=== PATIENT | female | born 1975 ===

== ENCOUNTER 2021-07-27 12:09 | Outpatient (REF) | payer MEDICARE, MEDICAID, SELFPAY ==
[2021-07-27 14:54] LABS: Influenza A PCR NEGATIVE (Negative); Influenza B PCR NEGATIVE (Negative); Resp Syncy Virus RNA Qual PCR NEGATIVE (Negative); SARS COV2 PCR INHOUSE NEGATIVE (Negative)
== END 2021-07-27 12:10 | disposition home or self-care (01) ==
LOC: HO.LAB 12:09
PROVIDERS: Visit Provider Family Medicine
DX: Z20.822 Contact with and (suspected) exposure to COVID-19 (principal); R05.9 Cough, unspecified
CPT/HCPCS: 0241U; 36415

== ENCOUNTER 2025-04-07 13:20 | Outpatient (AMB) | payer MEDICARE, SELFPAY ==
--- NOTE | 2025-04-07 13:30 | A.OFFPC_ITS ---
Vital Signs 3 04/07/25 13:35 Height 5 ft 5.5 in Weight 163 lb 6 oz BMI 26.8 BP 132/70 Blood Pressure Location Rt brachial Position Sitting Respiration 12 Pulse 62 Pulse Source Pulse Oximeter Temp 97.3 F Temp Source Oral Pulse Oximetry (%) 99 Oxygen Delivery Method Room Air Intake Visit Reasons: est care Intake Note: New patient to establish care. Autopsy Assistant Required: No Allergies No Known Allergies Allergy (Verified 04/07/25 13:56) Medication List - Last Reconciled 04/07/25 by Elba Gresham, PRESSURE DISPATCHER- metoprolol succinate ER 25 mg PO BID Tobacco use date assessed: 04/07/25 Fall risk assessment: No Falls in past year Last assessed Fall Risk: 04/07/25 Dental Screening Dental Screen Date: 04/07/25 Did you have a dental visit in the last 12 months?: No Did you have a dental problem in the last 6 months where you did not have access to dental care?: No Was dental information given to patient?: Patient has dentist HPI HPI Comments 2 History of Present Illness0 Details 76 y/o F with Mitral valve prolapse, PV C, HTN, Vertigo, hx of sulema vaginitis, pes planus bilat, onychomycosis, cervical spondylosis, sciatica, hiatal hernia, basal cell ca of the skin, hx of stillborn (1st child), hx of MDD SurgHx: FHx: Dtr with Kleefstra syndrome; has special needs Granddtr SocHx: has chickens Health Maintenance: See scanned preventative medicine assessment with personalized health plan and screening schedule. Colon: Mammo DEXA PAP Vaccines AAA screen EKG: [place] of Care: [facility] Visual Acuity: Hearing Screening: hearing test in the past; reports hearing worse. Wonders about update hearing exam. ACP: Dietary/Nutrition/Exercise Edu provided: Y Here today to est care, no records available Previous PCP: Treva Several concerns today: MVP & PVC - managed by Sarah, Dr Duenas; takes BB Takes care of special needs GrandDtr in preschool Exposed to sick contact URI x 2, cough continues but not as bad No abt or medical care Pain inside of L foot, bump there, sx present for about 1-2 months Wears bilat orthotics; admits the pain started after she switched Denies trauma to the foot. Urine stream has slowed down a few weeks ago. Denies fever, chills, abd pain, blood in urine, vaginal d/c. Chronic constipation: using OTC Magnesium Ridges on finger nails, wonders if normal Basal cell ca of R thigh did not get treated d/t life stressors; willing to f/u now insomnia wakes between 2-5 am and naps during the day, using otc supplements with effect Hiatal hernia w/ sx of choking at times. Does not want to try PPI or the like. Lower abd hernia - caused by pushing a car; hurts when she coughs. pulls knees to chest and this helps. Exam: Awake alert NAD Scleras nonicteric bilat Cerumen bilat, cleared w/ lavage, TM intact and clear RRR, 2/6 murmur LS CTAB, mild cough, no distress Abd soft nontender No CVAT No edema BLE L foot interior aspect is a visible and palpable firm bump, appears bruised. Not TTP. Pes planus. Neurovasc intact. R lateral thigh: see below. longitudnal ridges in fingernails, uniform Mood and affect appropriate Plan: Reassured about the cough. Exam is benign. This is likely postviral cough syndrome which can be treated supportively. She was reassured about the ridges in her nails on her fingers. She was referred to Dermatology for the area on her right thigh. She was referred for a hearing exam. Ears flushed today. An x-ray of the left foot we will be done. Today to include a urinalysis to evaluate her complaints. General wellness labs will be done at the same time. Continue metoprolol and care with titrator. Advised to return to the office in 4-6 weeks for a Medicare wellness visit and sooner as needed. Total time spent caring for the patient today was 90 minutes. This includes time spent before the visit reviewing the chart, time spent during the visit, and time spent after the visit on documentation, reviewing laboratory results, diagnostic imaging, medications, performing a medically necessary evaluation, counseling on diagnoses, care coordination, ordering appropriate tests, ordering appropriate medications, review of tests performed by other providers, reporting test results with the patient, communication with other healthcare providers. [facility] Medical History (Updated 04/07/25 @ 14:56 by Elba Gresham, [facility]) Cervical spondylosis HTN (hypertension) No pertinent family history Palpitations Shingles Skin cancer Stillborn, normal Surgical History (Updated 04/07/25 @ 13:41 by Piero Echols MA) History of appendectomy [place] teeth extracted Social History (Updated 04/07/25 @ 13:42 by Piero Echols MA) Household Members: Spouse and Children Housing: House Are you a primary career transition specialist to a significant other at home: Yes Do you presently have visiting nurse or other home services: No Alcohol intake: never Patient Tobacco Use Status: Never used Tobacco e-Cigarette/Vaping Use: Never Used Second Hand Smoke Exposure: No service: No Current occupational status: retired Cognitive needs: Yes Hearing needs: Yes Vision needs: Yes (wear glasses) Questionnaire PHQ-9 Over the last 2 weeks, how often have you been bothered by any of the following problems? 1. Little interest or pleasure in doing things: not at all 2. Feeling down, depressed, or hopeless: not at all 3. Trouble falling or staying asleep, or sleeping too much: several days 4. Feeling tired or having little energy: several days 5. Poor appetite or overeating: not at all 6. Feeling bad about yourself - or that you are a failure or have let yourself or your family down: not at all 7. Trouble concentrating on things, such as reading the newspaper or watching television: not at all 8. Moving or speaking so slowly that other people could have noticed. Or the opposite - being so fidgety or restless that you have been moving around a lot more than usual: not at all 9. Thoughts that you would be better off or of hurting yourself in some way: not at all Total score: 2 Depression Screening Interpretation: Negative Depression Screening Done: Yes 38278 - PHQ-9 Billing: Yes Source: Developed by Drs. Suman Guerrero, Catina Cisneros, Loki Mar and colleagues, with an educational lanre from [employer]. Thrive Questionnaire Date Thrive assessed: 04/07/25 I am a: Patient What is your living situation today?: I have a steady place to live Within the past 12 months, did the food you bought not last and you didn't have the money to get more?: Never true Within the past 12 months, did you worry whether your food would run out before you got money to buy more?: Never true Do you have trouble paying for medicines?: No Do you have trouble getting transportation to medical appointments?: No Do you have trouble paying your heating and electricity bill?: No Do you have trouble taking care of your child, family member or friend?: No Do you have trouble with day-to-day activities such as bathing, preparing meals, shopping, managing finances, etc.?: No Are you currently unemployed and looking for a job?: No Are you interested in more education?: No Please select the resources that you would like help with: Care for elder or disabled Currently or been in a relationship where the following occur: I choose not to answer THRIVE Score: 0 AUDIT C Alcohol Use Questionnaire (AUDIT-C) 1. How often do you have a drink containing alcohol?: Never 3. How often do you have six or more drinks on one occasion?: Never Total Score: 0 Score Reviewed/Action Taken: Yes CECIL-7 AMB Questionnaire CECIL-7 Date CECIL - 7 assessed: 04/07/25 Feeling nervous, anxious, or on edge: 0 = Not at all Not being able to stop or control worryin = Not at all Worrying too much about different things: 0 = Not at all Trouble relaxin = Not at all Being so restless that it is hard to sit still: 0 = Not at all Becoming easily annoyed or irritable: 0 = Not at all Feeling afraid as if something awful might happen: 0 = Not at all Total CECIL-7 score (0-4 normal; 5-9 mild; 10-14 moderate; 15-21 severe): 0 Source: Developed by Drs. Suman Guerrero, Catina Cisneros, Loki Mar and colleagues, with an educational lanre from [employer]. CECIL-7 Assessment Billing CECIL-7 Assessment Tool: CECIL-7 Assessment 36138 Physical exam (Primary Care) Vital Signs: Last Vital Signs Temp 97.3 F 04/07/25 13:35 Pulse 62 04/07/25 13:35 Resp 12 04/07/25 13:35 BP 132/70 04/07/25 13:35 Pulse Ox 99 04/07/25 13:35 Oxygen Delivery Method Room Air 07/31/25 13:35 BMI result Body Mass Index 26.8 Tobacco/Smoking Status: Tobacco use Status Tobacco use date assessed 04/07/25 04/07/25 13:33 Patient Tobacco Use Status Never used Tobacco 04/07/25 13:42 e-Cigarette/Vaping Use Never Used 04/07/25 13:42 PHQ-9: PHQ-9 Score PHQ-9: Total score 2 04/07/25 13:42 Depression Screening Interpretation: Negative Thrive Assessment: Date of Thrive Assessment Date Thrive assessed 04/07/25 04/07/25 13:42 Currently or been in a relationship where the following occur: I choose not to answer Office Procedures Cerumen Removal From which ear canal was the cerumen removed: bilateral Removal: irrigation, otoscope w/curette and cerumen loop/spoon Notes: patient tolerated procedure well, no complications and ear canal clear 00311-Jel Irrigation/Lavage Coding Level of Care Code New Pt Level 5 (89152) Complex EM visit Add On G2211 Diagnoses Encounter to establish care with new provider Z76.89 Sensorineural hearing loss (SNHL) of both ears H90.3 Hearing loss type: sensorineural Basal cell carcinoma (BCC) of skin of right lower extremity including hip C44.712 Basal cell carcinoma location: lower extremity including hip Laterality: right Mitral valve prolapse I34.1 Psychophysiological insomnia F51.04 Insomnia type: psychophysiologic Ridged nails L60.9 Slow transit constipation K59.01 Constipation type: slow transit constipation Hiatal hernia K44.9 Left foot pain M79.672 Impacted cerumen, bilateral H61.23 PVC (premature ventricular contraction) I49.3 Laboratory exam ordered as part of routine general medical examination Z00.00 History of changes of urine output Z87.448 History of depression Z86.59 Cervical spondylosis M47.812 Post-viral cough syndrome R05.8 CPT Codes Office Procedure - CPT: 03597-Zjn Irrigation/Lavage ([id number]) PROLONG OUTPT/OFFICE VIS - G2212 Additional Codes CECIL-7 Assessment Billing - CECIL-7 Assessment Tool: CECIL-7 Assessment 48116 ([id number]) PHQ-9 - 33343 - PHQ-9 Billing: Yes ([id number]) Assessment & Plan Assessment & Plan (1) Encounter to establish care with new provider: Code(s): Z76.89 - Persons encountering health services in other specified circumstances (2) Hearing loss, bilateral: Code(s): H91.93 - Unspecified hearing loss, bilateral Category: Medical Qualifiers: Hearing loss type: sensorineural Qualified Code(s): H90.3 - Sensorineural hearing loss, bilateral (3) Basal cell carcinoma of skin: Code(s): C44.91 - Basal cell carcinoma of skin, unspecified Category: Medical Qualifiers: Basal cell carcinoma location: lower extremity including hip L aterality: right Qualified Code(s): C44.712 - Basal cell carcinoma of skin of right lower limb, including hip (4) Mitral valve prolapse: Comment: echo 12/2023 AV VALVE MILDLY CALCIFIED, MV MOD THICKENING WITH MILD BILEAFLET PROLAPSE AND MILD TO MOD REGURG, GRADE 1 MILD DIASTOLIC DYSFUNCTION, EF 55-60% Code(s): I34.1 - Nonrheumatic mitral (valve) prolapse Category: Medical (5) Insomnia: Code(s): G47.00 - Insomnia, unspecified Category: Medical Qualifiers: Insomnia type: psychophysiologic Qualified Code(s): F51.04 - Psychophysiologic insomnia (6) Ridged nails: Code(s): L60.9 - Nail disorder, unspecified Category: Medical (7) Constipation: Code(s): K59.00 - Constipation, unspecified Category: Medical Qualifiers: Constipation type: slow transit constipation Qualified Code(s): K59.01 - Slow transit constipation (8) Hiatal hernia: Code(s): K44.9 - Diaphragmatic hernia without obstruction or gangrene Category: Medical (9) Left foot pain: Code(s): M79.672 - Pain in left foot Category: Medical (10) Impacted cerumen, bilateral: Code(s): H61.23 - Impacted cerumen, bilateral (11) PVC (premature ventricular contraction): Code(s): I49.3 - Ventricular premature depolarization Category: Medical (12) Laboratory exam ordered as part of routine general medical examination: Code(s): Z00.00 - Encounter for general adult medical examination without abnormal findings Category: Medical (13) History of changes of urine output: Code(s): Z87.448 - Personal history of other diseases of urinary system Category: Medical (14) History of depression: Code(s): Z86.59 - Personal history of other mental and behavioral disorders Category: Medical (15) Cervical spondylosis: Code(s): M47.812 - Spondylosis without myelopathy or radiculopathy, cervical region Category: Medical (16) Post-viral cough syndrome: Code(s): R05.8 - Other specified cough Category: Medical Plan . Orders: Orders 2 Lipid Panel Today Z00.00 - Encounter for general adult medical examination without abnormal findings Microalbumin, Random (w Creat) Today Z00.00 - Encounter for general adult medical examination without abnormal findings TSH reflex Free T4 Today Z00.00 - Encounter for general adult medical examination without abnormal findings Vitamin B12 and Folate Today Z00.00 - Encounter for general adult medical examination without abnormal findings XR foot LT min 3V Today M79.672 - Pain in left foot Complete Blood Count no Diff Today Z00.00 - Encounter for general adult medical examination without abnormal findings Comprehensive Met. Panel Today Z00.00 - Encounter for general adult medical examination without abnormal findings UA CC w/rflx Micro + Cult Today R30.0 - Dysuria, Z00.00 - Encounter for general adult medical examination without abnormal findings Vitamin D 25-OH Total Today Z00.00 - Encounter for general adult medical examination without abnormal findings Referrals 2 Audiology Referral H91.93 - Unspecified hearing loss, bilateral Dermatology Referral C44.91 - Basal cell carcinoma of skin, unspecified Patient Instructions: Walk-In Care (Urgent Care): We Make it Easy Walk-in for urgent medical issues such as: ? Seasonal Allergies ? Insect Bites ? Cough ? Diarrhea ? Acute Asthma Attacks ? Back, Knee or Joint Pain ? Ear Infection ? Fever without a Rash ? Headaches ? Nausea ? [place], Rash or Skin Irritation ? Sore Throat ? Sports Physicals ? Vomiting Most insurances are accepted. Patients do not need to be part of the [facility] to seek care at the walk-in clinic. Locations [facility] Tamara Romero, [place] [address] ? [phone] [facility] Walk-In Care in [place] provides services to ages 18 and over. Open Friday-Friday: 8 a.m. to 5 p.m. and Friday: 9 a.m. to 3 p.m.* *Hours may vary due to staffing availability. To confirm Walk-In Care hours in [place], please call [phone]. [address] [place] [address] ? [phone] [facility] Walk-In Care in [place] provides services to ages 12 and over. Open Friday-Friday: 8 a.m. to 5 p.m. Hours may vary due to staffing availability. To confirm Walk-In Care hours in [place], please call [phone]. LABORATORY SERVICES: [facility] Lab ? Primary Location [address] [place] [address] Friday through Friday 6:00 AM ? 5:00 PM Friday 7:00 AM ? 11:00 AM* [phone] The [facility] Lab is centrally located near the front entrance of the [facility] for easy outpatient access. Convenient parking is provided for outpatients. *Hours may vary due to staffing availability. To confirm Laboratory hours for any location, please call [phone]. Offsite Location For your convenience, we offer offsite laboratory draw stations at the following locations: [address] [place] [address] ? [address], [address] Friday through Friday 7:30 AM ? 1:00 PM* [phone] *Hours may vary due to staffing availability. To confirm Laboratory hours for any location, please call [phone]. [place] ? [address] Friday through Friday 6:00 AM ? 3:30 PM* Friday 6:30 AM ? 3 PM* [phone] *Hours may vary due to staffing availability. To confirm Laboratory hours for any location, please call [phone] [place] [address] Friday through Friday 7:30 AM ? 4:00 PM* [phone] *Hours may vary due to staffing availability. To confirm Laboratory hours for any location, please call [phone] [place] [address] Friday through 9:00 AM ? 4:00 PM* *Hours may vary due to staffing availability. To confirm Laboratory hours for any location, please call [phone]. Appointments are not necessary. Walk-ins are welcome. Like all the departments throughout the [facility], our Lab undergoes frequent reviews to ensure the quality and accuracy of test results, and our staff takes special pride in its status as a nationally accredited facility. Patient Portal: ONE PATIENT. ONE RECORD. BETTER CARE. [facility] has a fully integrated, cutting- edge mobile electronic health information system that has revolutionized the way we care for our patients and manage our organization. This system improves communication and coordination enabling us to provide safe, higher-quality care, and an overall positive experience for staff and patients. Our first priority, as always, is to deliver the highest quality care possible. The system is running in the background supporting that priority. This portal is for all [facility] services and practices. If you are experiencing any technical difficulties with enrolling or logging into the Patient Portal please complete the [facility] Patient Portal Technical Support Form. [facility] now offers a new secure on-line interactive tool for patients to review their health information ? ?Patient Portal. This interactive web portal will enable patients and their families to take an active role in their care by providing easy, secure access to their health information via the internet. The Patient Portal provides patients with instant access to their health information, including laboratory results, medications, allergies, demographic information, visit history, and more. In addition to managing their own care, parents and health care proxies with authorized consent will appreciate the ability to access the records of those individuals for whom they provide care. Please note: if you wish to gain access (Proxy) to another patient?s portal, you will be required to come to the Medical Records Department in person at [facility]. Both the patient giving proxy access and the proxy will need to provide photo identification and complete the appropriate authorization. The Patient Portal also allows track their appointments online. The [facility] Patient Portal also saves patients time by allowing them to submit updates to their demographic and contact information prior to their visits. Portal email notifications will also alert patients to any new activity on their portal, such as test results and new appointments. In order to initially enroll in the [facility] Patient Portal, you will need to enter some required information including the following: * your [facility] Medical Record number * your personal home email address * name * date of Please note: In order to enroll in the [facility] Patient Portal, we need to have your email address on file in your electronic medical record. ?The email address needs to be specific for one person (yourself) in order for your Portal enrollment to be successful. ?You can update your email address in person with our Registration staff when you are registering for a hospital visit. ?Otherwise, you will need to come to the Health Information Management (Medical Records) Department at [facility]. ?We are open from Friday ? Friday from 7:30 a.m. ? 4:30 p.m. ?You will be required to present a photo id. Once you have successfully enrolled in the Patient Portal, you will receive a one-time user id and password for the Portal, sent to your email address. ?This will allow you to log into the Patient Portal within 99 hrs and reset your own logon id and password, and define personal security questions. ?Once your permanent login and password have been set, you can log into the [facility] Patient Portal at any time via the blue button above or from the Portal Logon button on any page of the [facility] website. [facility] and [facility] encourage all of our patients to enroll in Patient Portal as it presents a valuable opportunity for patients and their families to actively participate in their care and stay healthy Welcome to [facility]. ?We look forward to working with you.
--- OUTSIDE RECORDS SUMMARY | 2025-04-07 13:34 | XMS_ITS ---
Author Name [facility] Organization Unknown Care Team Organization Name Specialty Phone Email Start Date End Da te [facility] Termed, PROVIDER Primary Care 07/16/202204/08
--- OUTSIDE RECORDS SUMMARY | 2025-04-07 13:34 | XMS_ITS | Clinical Summary ---
Author Organization [employer] [facility] ity Address [address] [place] [address] Care Team Providers Care Industrial Production Manager Name Role Phone Gabi Chen MD Primary Care Provider [phone] Surgical History Surgery Date Site/Laterality Comments APPENDECTOMY PROCEDURE: HISTORICAL APPENDECTOMY; COMMENT: at age 9 Medical History Medical History Date Comments Mitral valve prolapse DX:Mitral valve prolapse A-fib (CMS/HCC V24, CMS/HCC V28) DX:A-fib (HCC); COMMENT: hx of afib; resolved Hypothyroid DX:Hypothyroid Depression DX:Depression Constipation DX:Constipation Joint pain DX:Joint pain Mitral regurgitation DX:Mitral r egurgitation; COMMENT: mild; echo Family History Medical History Relation Name Comments Colon cancer Brother 1 Other: Elpidio Danlos Daughter 1 Eden Other: autism Daughter 1 Eden Seizures Daughter 1 Eden No Known Problems Daughter 2 Abby Breast cancer Neg Hx Colon cancer Neg Hx Ovarian cancer Neg Hx Uterine cancer Neg Hx Relation Name Status Comments Brother 1 Alive Brother 2 Alive age 61 heart is sues ? Daughter 1 Eden Alive Daughter 2 Abby Alive Father (Age 80) pacemaker, mitral valve prolaspe Mother (Age 89) mitral maxine ve prolaspe, pacemaker, htn, bladder chronic infections Sister 1 Alive age 63 fibromal igia, chronic fatigue Sister 2 Alive age 58 MS, (von quintero has MS as well) Social History Tobacco Use Types Packs/Day Years Used Date Smoking Tobacco: Never Smokeless Tobacco: Never Alcohol Use Standard Drinks/Week Comments No 0 (1 standard drink = 0.6 oz pur e alcohol) Comments Unknown Sex and Gender Information Value Date Recorded Sex Assigned at Not on file Legal Sex Female 10:10 AM EST Gender Identity Not on file Sexual Orientation Not on file Obstetrics History Last Filed Vital Signs Vital Sign Reading Time Taken Comments Blood Pressure 138/80 05/24/2024 4:46 PM EDT Pulse 76 05/24/2024 4:18 PM EDT Temperature - - Respiratory Rate - - Oxygen Saturation - - Inhaled Oxygen Concentration - - Weight 72.5 kg (159 lb 12.8 oz) 05/24/2024 4:18 PM EDT Height 167.6 cm (5' 6 ) 05/24/2024 4:18 PM EDT Body Mass Index 25.79 05/24/2024 4:18 PM EDT Plan of Treatment Health Maintenance Due Date Last Done Comments Pneumococcal Vaccine: 50+ Ye ars (1 of 1 - PCV) 03/06/1999 Zoster Vaccines (1 of 2) 03/06/1999 Colorectal Cancer Screening: Stool Based Tests (FOBT/FIT) 08/06/2022 Falls Risk Assessment 08/06/2022 Hepatitis C Screening 08/06/2022 Osteoporosis Screening (Bone Density Screening) 08/06/2022 Social Influencers of Health Screening 08/06/2022 DTaP,Tdap,and Td Vaccines (2 - Td or Tdap) 01/27/2024 01/26/2014 RSV Immunization Adult Patie nts (1 - 1-dose 75+ series) 03/06/2024 COVID-19 Vaccine ( - 2023-2 5 season) 2024 Depression Screening 09/08/2024 Influenza Vaccine (#1) 2025 Hypertension/CHF/CAD Annual BMP Blood Test 06/24/2025 06/24/2024 Cholesterol Screening (Lipid Panel) 06/24/2029 06/24/2024 HIB Vaccines Aged Out No longer eligi ble based on patient's age to complete this topic HPV Vaccines Aged Out No longer eligi ble based on patient's age to complete this topic Hepatitis A Vaccines Aged Out No long er eligible based on patient's age to complete this topic Hepatitis B Vaccines Aged Out No long er eligible based on patient's age to complete this topic IPV Vaccines Aged Out No longer eligi ble based on patient's age to complete this topic MMR Vaccines Aged Out No longer eligi ble based on patient's age to complete this topic Meningococcal ACWY Vaccine Aged Out N o longer eligible based on patient's age to complete this topic Meningococcal B Vaccine Aged Out No l onger eligible based on patient's age to complete this topic RSV Immunization Patients Un amairlys 20 months Aged Out No longer eligible b ased on patient's age to complete this topic Varicella Vaccines Aged Out No longer eligible based on patient's age to complete this topic Care Teams Industrial Production Manager Relationship Specialty Start Date End Date Gabi Chen MD PCP - General 10/28/23
[2025-04-07 13:35] VITALS: BP 132/70; PULSE 62; RESP 12; TEMP 36.3; O2SAT 99; BMI 26.8
== END 2025-04-07 15:16 | disposition home or self-care (01) ==
LOC: HO.HMCFM 13:21
PROVIDERS: PCP Nurse Practitioner Family; Visit Provider Nurse Practitioner Family
DX: I34.1 Nonrheumatic mitral (valve) prolapse (principal); Z76.89 Persons encountering health services in other specified circumstances; H90.3 Sensorineural hearing loss, bilateral; C44.712 Basal cell carcinoma of skin of right lower limb, including hip; F51.04 Psychophysiologic insomnia; L60.9 Nail disorder, unspecified; K59.01 Slow transit constipation; K44.9 Diaphragmatic hernia without obstruction or gangrene; M79.672 Pain in left foot; R05.8 Other specified cough; H61.23 Impacted cerumen, bilateral; I49.3 Ventricular premature depolarization

== ENCOUNTER 2025-04-07 14:54 | Outpatient (REF) | payer MEDICARE, SELFPAY ==
[2025-04-07 18:22] LABS: Alanine Aminotransferase 18 U/L (0-31); Albumin Level 4.4 g/dL (3.5-5.0); Alkaline Phosphatase 76 U/L (39-117); Anion Gap 13 (12-20); Aspartate Amino Transferase 32 U/L (5-31); Blood Urea Nitrogen 28 mg/dL (9-16); Calcium 9.3 mg/dL (8.4-10.2); Carbon Dioxide 23 mmol/L (22-29); Chloride 108 mmol/L (96-108); Cholesterol 239 mg/dL (<200); Estimated Glomerular Filt Rate 53; HDL Cholesterol 50 mg/dL (>40); Potassium 4.0 mmol/L (3.3-5.1); Sodium 140 mmol/L (135-145); Total Protein 7.0 g/dL (6.5-8.0); Triglycerides 222 mg/dL (<150)
[2025-04-07 18:26] LABS: Hematocrit 41.3 % (37.0-47.0); Hemoglobin 14.1 g/dl (12.0-16.0); Mean Corpuscular HGB Conc 34.1 g/dl (31.0-35.0); Mean Corpuscular Hemoglobin 28.8 pg (27.0-33.0); Mean Corpuscular Volume 84.5 fL (80.0-98.0); NRBC Abs Auto 0.000 X10*3/uL (0.0-0.012); NRBC Pct Auto 0.0 /100WBC (0.0-0.2); Platelet Count 238 X10*3/uL (160-400); Red Blood Count 4.89 X10*6/uL (4.20-5.50); White Blood Count 7.6 X10*3/uL (4.8-10.8)
[2025-04-07 18:53] LABS: Folate 9.4 ng/mL (> or = 4.0); Vitamin B12 520 pg/mL (200-900)
[2025-04-07 19:59] LABS: Appearance Urine Clear; Glucose Urine UA Negative (Negative); PH 6.0 (5.0-9.0); Specific Gravity - Urine 1.025 (1.005-1.025); UMIC TRIGGER UACC YES
[2025-04-07 20:04] LABS: UACC Culture Trigger YES
== END 2025-04-07 14:55 | disposition home or self-care (01) ==
LOC: HO.WFDLDS 14:54
PROVIDERS: Visit Provider Nurse Practitioner Family
DX: Z00.00 Encounter for general adult medical examination without abnormal findings (principal); Z76.89 Persons encountering health services in other specified circumstances; H90.3 Sensorineural hearing loss, bilateral; C44.712 Basal cell carcinoma of skin of right lower limb, including hip; I34.1 Nonrheumatic mitral (valve) prolapse; F51.04 Psychophysiologic insomnia; L60.9 Nail disorder, unspecified; K59.01 Slow transit constipation; K44.9 Diaphragmatic hernia without obstruction or gangrene; M79.672 Pain in left foot; H61.23 Impacted cerumen, bilateral; I49.3 Ventricular premature depolarization; M47.812 Spondylosis without myelopathy or radiculopathy, cervical region; R05.8 Other specified cough; Z86.59 Personal history of other mental and behavioral disorders; I10 Essential (primary) hypertension; R82.998 Other abnormal findings in urine
CPT/HCPCS: 36415; 69210; 80053; 80061; 81001; 81003; 82306; 82570; 82607; 82746; 84443; 85027; 87086; 96127; 99202

== ENCOUNTER 2025-05-19 13:55 | Outpatient (REF) | payer MEDICARE, SELFPAY | END 2025-05-19 13:56 | disposition home or self-care (01) | LOC: HO.SH 13:55 | PROVIDERS: Visit Provider Nurse Practitioner Family | DX: Z01.118 Encounter for examination of ears and hearing with other abnormal findings (principal); H90.3 Sensorineural hearing loss, bilateral | CPT/HCPCS: 92557 ==

== ENCOUNTER 2025-05-26 14:49 | Outpatient (AMB) | payer MEDICARE, SELFPAY ==
--- NOTE | 2025-05-26 14:52 | A.OFFVIS_ITS ---
Intake Vital Signs 3 05/26/25 14:55 05/26/25 15:56 Height 5 ft 5.5 in Weight 160 lb 2 oz BMI 26.2 BP 154/78 H 150/80 H Blood Pressure Location Rt brachial Rt brachial Position Sitting Sitting Respiration 13 Pulse 61 Pulse Source Pulse Oximeter Temp 97.8 F Temp Source Oral Pulse Oximetry (%) 99 Oxygen Delivery Method Room Air Intake Visit Reasons: 4-6 WEEKS SAWV 30 MIN Intake Note: AWV. Associate Relations Specialist Required: No Allergies No Known Allergies Allergy (Verified 05/26/25 14:52) Medication List - Last Reconciled 05/26/25 by Elba Gresham, [facility]- metoprolol succinate ER 25 mg PO BID Do you need a note to return to daycare/school/sports/work: No HPI HPI Comments 2 History of Present Illness0 Details Here today for AWV. The Medicare Annual Wellness Visit (AWV) is a yearly appointment with a health professional to identify health risks and help reduce them and to create or update a personalized prevention plan. During a Medicare AWV, health professionals should also review any current opioid prescriptions, detect any cognitive impairment, and establish or update medical and family history. 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 SocHx: has chickens Health Maintenance: See scanned preventative medicine assessment with personalized health plan and screening schedule. Colon: declined [place] declined future screenings DEXA: ordered today PAP: aged out Vaccines: declined tdap and flu, reviewed Pneumococcoal, declined Shingles. AAA screen: NA EKG: declined; managed by [facility] [place] [facility]: [facility] [employer] Visual Acuity: wears glasses, last exam a few months ago. Hearing Screening: hearing test in the past; reports hearing worse. Hearing exam done Summer 2024, told no need for hearing aides. ACP: does not have HCP or MOLST. Blank forms given today along w/ 5 wishes. Dietary/Nutrition/Exercise Edu provided: Y During the course of the visit the patient was educated and counseled about appropriate screening and preventative services. Patient instructions were provided to the patient in written or electronic format. I have reviewed and verified the above information. History of Present Illness The patient is a 76-year-old female presenting with an annual Medicare exam and management of hypertension. MVP & PVC - managed by [facility], Dr Duenas; takes BB. BP > goal, not taking BB BID as it causes fatigue, Takes care of special needs GrandDtr in preschool Pain inside of L foot, bump there, sx present for about 1-2 months Wears bilat orthotics; admits the pain started after she switched Denies trauma to the foot. Toenail Pain: - Right toe recurrent discomfort, foot d iscomfort varies. - Requires podiatry referral. Chronic constipation: using OTC Magnesium Basal cell ca of R thigh did not get treated d/t life stressors; willing to f/u now insomnia wakes between 2-5 am and naps during the day, using otc supplements with effect Hiatal hernia w/ sx of choking at times. Does not want to try PPI or the like. Lower abd hernia - caused by pushing a car; hurts when she coughs. pulls knees to chest and this helps. Has not scheduled Derm appt; does not want xray of foot. HLD does not want meds; interested in nutrition referral. LDL > 100 Social History - Grandmother involved in the regular ca re of a granddaughter with special needs. - Manages substantial family responsibil ities, including caring for chickens. - Active [employer] member expressing frustr ation with some teachings. Health Maintenance - Discussion of Pneumococcal and Shingle s vaccines, patient expresses reluctance. - Considerations today for bone density screening (DEXA scan) due to age. - Blood pressure monitoring instructed f or home with implications for treatment adjustments. - Nutritional counseling offered due to weight concerns; patient following a home-cooked diet with fresh produce when possible. - Patient exhibits an interest in reduci ng processed foods. Review of Systems - Cardiovascular: Reports blood pressure fluctuations. Denies acute cardiovascular symptoms. - Musculoskeletal: Reports sciatica and cervical discomfort. - Dermatological: Denies severe skin sym ptoms but previous basal cell history. - Neurological: Denies acute neurologica l symptoms. Reports past neurodevelopmental condition. - Genitourinary: Previously diagnosed va ginitis, resolved. - Sensory: Reports mild hearing loss, no t requiring aids. Visual issues likely contributed by cervical spondylosis. - Respiratory: Denies respiratory sympto ms. Exam: Awake alert NAD Scleras nonicteric bilat TM intact and clear Cerumen bilat, cleared w/ lavage, TM intact and clear RRR, 2/6 murmur LS CTAB, mild cough, no distress Abd soft nontender No CVAT No edema BLE L foot interior aspect is a visible and palpable firm bump, appears bruised. Not TTP. Pes planus. Neurovasc intact. R lateral thigh: see below. longitudnal ridges in fingernails, uniform Mood and affect appropriate Results See below Discussion Notes During this visit, I reviewed the patient's management of her hypertension and her cardiac health concerning mitral valve prolapse and premature ventricular contractions. I discussed options for medication adjustments to manage blood pressure effectively while managing fatigue side effects. We examined the patient's concerns about potential ingrown toenail issues, and I recommended referral to podiatry for further evaluation and management. I addressed the patient's concerns regarding past miscommunication and emphasized the importance of our patient portal for direct communication. I counseled the patient on various preventive health measures, including vaccination recommendations and osteoporosis screening with a DEXA scan. Nutritional strategies were discussed related to her concerns about weight management, emphasizing reduced processed food intake. I reiterated the need for blood pressure monitoring at home and advised a follow-up visit in two weeks to assess adjustments in medication and lifestyle changes. We also focused on cognitive health, given the patient's recall issue on screening today, and discussed stress management given her extensive familial responsibilities. Patient was given time to ask questions. All questions were answered to their satisfaction. Assessment and Plan 1. Essential Hypertension - Increase Metoprolol dosage to BID. off ered and declined ACEI - Recommend daily BP monitoring. - Follow-up in two weeks. 2. Mitral Valve Prolapse - Continue current cardiac management. - Follow with cardiology. 3. Toenail Pain - Refer to podiatry for evaluation. 4. HLD nutrition referral 5. BCC make appt w/ Derm Patient Instructions - Take Metoprolol twice a day. - Monitor your blood pressure at home ea . - Expect a phone call for bone density a nd podiatry appointments. - Try to avoid processed foods and maint ain a balanced diet. - Use the patient portal to message me fady irectly in case of any medical concerns. - Follow up in two weeks to review your blood pressure and any changes in health. Consent Patient was informed and verbally consented to the use of an ambient scribe for clinic note documentation during this visit. An additional 45 minutes was spent addressing the problem(s) noted at todays visit. This includes time spent before the visit reviewing the chart, time spent during the visit, and time spent after the visit on documentation reviewing laboratory results, diagnostic imaging, medications, performing a medically necessary evaluation, counseling on diagnoses, care coordination, ordering appropriate tests, ordering appropriate medications, review of tests performed by other providers, reporting test results with the patient, communication with other healthcare providers. [facility] Medical History (Updated 05/27/25 @ 07:57 by Elba Gresham, [facility]) Cervical spondylosis HTN (hypertension) No pertinent family history Palpitations Shingles Skin cancer Stillborn, normal Surgical History (Updated 04/07/25 @ 13:41 by Piero Echols MA) History of appendectomy Petal teeth extracted Social History (Updated 04/07/25 @ 13:42 by Piero Echols MA) Household Members: Spouse and Children Both parents involved: No Caregiver staying overnight: No Housing: House Are you a primary pulmonary care nurse to a significant other at home: Yes Do you presently have visiting nurse or other home services: No 75 years or older and lives alone: No Alcohol intake: never Patient Tobacco Use Status: Never used Tobacco e-Cigarette/Vaping Use: Never Used Second Hand Smoke Exposure: No service: No Current occupational status: retired Cognitive needs: Yes Hearing needs: Yes Vision needs: Yes (wear glasses) Questionnaire Medicare Wellness Checkup What [age]?: [age] What gender do you identify with?: female During the past 4 weeks, how much have you been bothered by emotional problems such as feeling anxious, depressed, irritable, sad or downhearted, and blue?: s lightly During the past 4 weeks, has your physical & emotional health limited your social activities with family, friends, neighbors, or groups?: slightly During the past 4 weeks, how much bodily pain have you generally had?: very mild pain During the past 4 weeks, was someone available to help you if you needed & wanted help?: yes, as much as I wanted During the past 4 weeks, what was the hardest physical activity you could do for at least 2 minutes?: moderate Can you get to places out of walking distance without help? (For eg., can you travel alone on buses, taxis or drive your car?): Yes Can you go shopping for groceries or clothes without someone's help?: Yes Can you prepare your own meals?: Yes Can you do your housework without help?: Yes Because of any health problems, do you need the help of another person with your personal care needs such as eating, bathing, dressing or getting around the house?: No Can you handle your own money without help?: Yes During the past 4 weeks, how would you rate your health in general?: very good During the past 4 weeks how have things been going for you?: very well; could hardly better Are you having difficulties driving your car?: no Do you always fasten your seat belt when you are in a car?: yes, usually During past 4 weeks, have you been bothered by the following: never: Falling or dizzy when standing up, Sexual problems?, Trouble eating well?, Teeth or denture problems?, Problems using the telephone? and Tiredness or fatigue? Have you fallen 2 or more times in the past year?: No Are you afraid of falling?: No Are you a smoker?: no During the past 4 weeks, how many drinks of wine, beer, or other alcoholic beverages did you have?: no alcohol at all Do you exercise for about 20 minutes 3 or more times a week?: yes, some of the time Have you been given information to help with the following?: no: Hazards in your house that might hurt you? and no: Keeping track of your medications? How often do you have trouble taking medicines the way you have been told to take them?: I always take medicine as prescribed How confident are you that you can control & manage most of your health problems?: very confident What is your race?: White Activity of Daily Living Bathing - sponge bath, tub bath or shower: receives no assistance (gets in/out by self, if usual bathing means Dressing - getting clothes from closets & drawers, including inner/outer garments & fasteners.: gets clothes & gets completely dressed without help Toileting - going to the 'toilet room' for urine/bowel elimination & cleaning self/arranging clothes: goes to toilet room, cleans self, arranges clothes without help Transfer: moves in & out of bed and chair without help (may use support object) Continence: controls urination/bowel movements completely by self Feeding: feeds self without help Total Score: 0 Information obtained from: patient Using telephone: independent Traveling: independent Shopping: independent Preparing meals: independent Housework: independent Taking medicine: independent Managing money: independent PHQ-9 Over the last 2 weeks, how often have you been bothered by any of the following problems? 1. Little interest or pleasure in doing things: not at all 2. Feeling down, depressed, or hopeless: not at all 3. Trouble falling or staying asleep, or sleeping too much: not at all 4. Feeling tired or having little energy: not at all 5. Poor appetite or overeating: not at all 6. Feeling bad about yourself - or that you are a failure or have let yourself or your family down: not at all 7. Trouble concentrating on things, such as reading the newspaper or watching television: not at all 8. Moving or speaking so slowly that other people could have noticed. Or the opposite - being so fidgety or restless that you have been moving around a lot more than usual: not at all 9. Thoughts that you would be better off or of hurting yourself in some way: not at all Total score: 0 Depression Screening Interpretation: Negative Depression Screening Done: Yes 22392 - PHQ-9 Billing: Yes Source: Developed by Drs. Suman Guerrero, Catina Cisneros, Loki Mar and colleagues, with an educational lanre from [employer]. Physical Exam Vital Signs: Last Vital Signs Temp 97.8 F 05/26/25 14:55 Pulse 61 05/26/25 14:55 Resp 13 05/26/25 14:55 BP 150/80 H 05/26/25 15:56 Pulse Ox 99 05/26/25 14:55 Oxygen Delivery Method Room Air 05/26/25 14:55 BMI result Body Mass Index 26.2 Office Procedures AMB Patient Education/Training AMB Patient Education/Training Documentation: [id number] Separately and distinctly, 8 minutes face to face counseling on risk factor reduction related to diet, exercise, weight management, sexual health, immunization, injury prevention. Medical necessity includes review of VS, BMI, current medications, age/race/gender to identify risks. Patient was provided with a wellness handout at the time of discharge. Vision Screening Right Eye: 20/25 Left Eye: 20/30 Bilateral: 20/25 Color: Pass Corrected: Pass (wearing glasses) [id number] - Vision Screening Results AMB Hemoglobin A1c 2 AMB Hemoglobin A1c 5.1 % Last Edit by Piero Echols MA on 05/26/25 15:12 Results Reviewed Results Reviewed: Laboratory Last Values Hgb A1c (Clinic) 5.1 % (4.0-6.0) 05/26/25 15:07 3 Laboratory 04/07/2025 Result Units Range Interpretation Provider Comments White Blood Count 7.6 X10*3/uL (4.8-10.8) Red Blood Count 4.89 X10*6/uL (4.20-5.50) Hemoglobin 14.1 g/dl (12.0-16.0) Hematocrit 41.3 % (37.0-47.0) Mean Corpuscular Volume 84.5 fL (80.0-98.0) Mean Corpuscular Hemoglobin 28.8 pg (27.0-33.0) Mean Corpuscular Hemoglobin Concent 34.1 g/dl (31.0-35.0) Red Cell Distribution Width 14.9 % (11.0-16.0) Platelet Count 238 X10*3/uL (160-400) Mean Platelet Volume 10.6 fL (9.4-12.3) Nucleated RBC Absolute Count (auto) 0.000 X10*3/uL (0.0-0.012) Nucleated Red Blood Cells % (auto) 0.0 /100WBC (0.0-0.2) Sodium Level 140 mmol/L (135-145) Potassium Level 4.0 mmol/L (3.3-5.1) Chloride Level 108 mmol/L (96-108) Carbon Dioxide Level 23 mmol/L (22-29) Anion Gap 13 (12-20) Blood Urea Nitrogen 28 mg/dL (9-16) High Creatinine 1.01 mg/dL (0.5-1.4) Estimated Creatinine Clearance Calc Not Reportable Estimat Glomerular Filtration Rate 53 Random Glucose 86 mg/dL (60-115) Calcium Level 9.3 mg/dL (8.4-10.2) Total Bilirubin 0.3 mg/dL (0.0-1.0) Aspartate Amino Transf (AST/SGOT) 32 U/L (5-31) High Alanine Aminotransferase (ALT/SGPT) 18 U/L (0-31) Alkaline Phosphatase 76 U/L (39-117) Total Protein 7.0 g/dL (6.5-8.0) Albumin 4.4 g/dL (3.5-5.0) Triglycerides Level 222 mg/dL (<150) High Cholesterol Level 239 mg/dL (<200) High LDL Cholesterol, Calculated 145 mg/dL (<100) High HDL Cholesterol 50 mg/dL (>40) Vitamin B12 Level 520 pg/mL (200-900) 25-Hydroxy Vitamin D Total 74.9 ng/mL (>30) Folate 9.4 ng/mL (> or = 4.0) Thyroid Stimulating Hormone (TSH) 2.34 uIU/mL (0.32-4.0) Urine Color Yellow Urine Appearance Clear Urine pH 6.0 (5.0-9.0) Urine Specific [place] 1.025 (1.005-1.025) Urine Protein Negative mg/dL (Neg-Trace) Urine Glucose (UA) Negative mg/dL (Negative) Urine Ketones Trace mg/dL (Negative) Urine Blood Negative (Negative) Urine Nitrite Negative (Negative) Urine Leukocyte Esterase Small (1+) (Negative) High Urine RBC 0-2 /HPF (0-2) Urine WBC 6-10 /HPF (0-5) High Urine Squamous Epithelial Cells 0-2 /HPF (0-2) Urine Bacteria None Seen (None Seen) Urine Hyaline Casts 0-2 /LPF (0-2) Urine Creatinine 88.62 mg/dL Urine Microalbumin < 5.0 mg/L Urine Microalbumin/Creatinine Ratio TNP Assessment & Plan Assessment & Plan (1) Encounter for subsequent annual wellness visit (AWV) in Medicare patient: Onset Date: ~05/26/25 Code(s): Z00.00 - Encounter for general adult medical examination without abnormal findings (2) ACP (advance care planning): Code(s): Z71.89 - Other specified counseling (3) Immunization counseling: Code(s): Z71.85 - Encounter for immunization safety counseling (4) Left foot pain: Code(s): M79.672 - Pain in left foot (5) Menopause: Code(s): Z78.0 - Asymptomatic menopausal state (6) HLD (hyperlipidemia): Code(s): E78.5 - Hyperlipidemia, unspecified Qualifiers: Hyperlipidemia type: mixed hyperlipidemia Qualified Code(s): E78.2 - Mixed hyperlipidemia (7) HTN (hypertension): Code(s): I10 - Essential (primary) hypertension Qualifiers: Hypertension type: primary hypertension Qualified Code(s): I10 - Essential (primary) hypertension (8) Basal cell carcinoma of skin: Code(s): C44.91 - Basal cell carcinoma of skin, unspecified Qualifiers: Basal cell carcinoma location: lower extremity including hip L aterality: right Qualified Code(s): C44.712 - Basal cell carcinoma of skin of right lower limb, including hip Plan . Orders: Orders 2 XR DEXA axial skeleton 05/26/25 Z13.820 - Encounter for screening for osteoporosis, Z78.0 - Asymptomatic menopausal state AMB Hemoglobin A1c 05/26/25 Z13.9 - Encounter for screening, unspecified Referrals 2 Podiatry Referral M79.671 - Pain in right foot, M79.672 - Pain in left foot, M79.674 - Pain in right toe(s) Clinic Office Manager Nutrition Referral E78.5 - Hyperlipidemia, unspecified Patient Instructions: Health screenings for women You should visit your health care provider from time to time, even if you are healthy. The purpose of these visits is to: Screen for medical issues Assess your risk for future medical problems Encourage a healthy lifestyle Update vaccinations and other preventive care services Help you get to know your provider in case of an illness Information Even if you feel fine, you should still see your provider for regular checkups. These visits can help you avoid problems in the future. For example, the only way to find out if you have high blood pressure is to have it checked regularly. High blood sugar and high cholesterol levels also may not have any symptoms in the early stages. A simple blood test can check for these conditions. There are specific times when you should see your provider or receive specific health screenings. The [place] Preventive Services Task Force publishes a list of recommended screenings. Below are screening guidelines for women ages 18 to 39. BLOOD PRESSURE SCREENING Your blood pressure should be checked at least once every 3 to 5 years if: Your blood pressure is in the normal range (top number less than 120 mm Hg and bottom number less than 80 mm Hg) You don't have risk factors for high blood pressure Ask your provider if you need your blood pressure checked more often if: The top number is 120 to 129 mm Hg or the bottom number is 70 to 79 mm Hg You have diabetes, heart disease, kidney problems, are overweight, or have certain other health conditions You have a first-degree relative with high blood pressure You are Black You had high blood pressure during a If the top number is 130 mm Hg or greater or the bottom number is 80 mm Hg or greater, this is considered stage 1 hypertension. Schedule an appointment with your provider to learn how you can reduce your blood pressure. Watch for blood pressure screenings in your area. Ask your provider if you can stop in to have your blood pressure checked. BREAST CANCER SCREENING Experts do not agree about the benefits of breast self-exams in finding breast cancer or saving lives. Talk to your provider about what is best for you. A screening mammogram is not recommended for most women under age 40. Your provider may discuss and recommend mammograms, MRI scans, or ultrasounds if you have an increased risk for breast cancer, such as: A mother or sister who had breast cancer at a young age (most often starting screening earlier than the age the close relative was diagnosed) You carry a high-risk genetic marker CERVICAL CANCER SCREENING Cervical cancer screening should start at age 21 years unless your provider advises otherwise. After the first test: Women ages 21 through 29 should have a Pap test every 3 years. Exoprts do not agree on whether HPV testing is recommended for this age group. Women ages 30 through 65 should be screened with either a Pap test every 3 years or the HPV test every 5 years or both tests every 5 years (called cotesting ). Women who have been treated for precancer (cervical dysplasia) should continue to have Pap tests for 20 years after treatment or until age 65, whichever is longer. If you have had your uterus and cervix removed (total hysterectomy), and you have not been diagnosed with cervical cancer or precancer (high grade cervical neoplasia), you do not need cervical cancer screening. CHOLESTEROL SCREENING Cholesterol screening should begin at: Age 45 for women with no known risk factors for coronary heart disease Age 20 for women with known risk factors for coronary heart disease Repeat cholesterol screening should take place: Every 5 years for women with normal cholesterol levels More often if changes occur in lifestyle (including weight gain and diet) More often if you have diabetes, heart disease, kidney problems, or certain other conditions DIABETES SCREENING You should be screened for diabetes starting at age 35 and then repeated every 3 years if you have no risk factors for diabetes. Screening may need to start earlier and be repeated more often if you have other risk factors for diabetes, such as: You have a first degree relative with diabetes. You are overweight or have obesity. You have high blood pressure, prediabetes, or a history of heart disease. Screening for diabetes should be done if you are planning to become and you are overweight and have other risk factors such as high blood pressure. DENTAL EXAM Go to the dentist once or twice every year for an exam and cleaning. Your dentist will evaluate if you need more frequent visits. EYE EXAM Have an eye exam every 5 to 10 years before age 40. If you have vision problems, have an eye exam every 2 years or more often if recommended by your provider. You should have an eye exam that includes an examination of your retina (back of your eye) at least every year if you have diabetes. IMMUNIZATIONS Commonly needed vaccines include: Flu shot: get one every year. COVID-19 vaccine: ask your provider what is best for you. Tetanus-diphtheria and acellular pertussis (Tdap) vaccine: have one at or after age 19 as one of your tetanus-diphtheria vaccines if you did not receive it as an adolescent. Tetanus-diphtheria: have a booster (or Tdap) every 10 years. Varicella vaccine: receive 2 doses if you never had chickenpox or the varicella vaccine. Hepatitis B vaccine: receive 2, 3, or 4 doses, depending on your exact circumstances. Measles, mumps, and rubella (MMR) vaccine: receive 1 to 2 doses if you are not already immune to MMR. Your provider can tell you if you are immune. Ask your provider about the human papillomavirus (HPV) vaccine if: You have not received the HPV vaccine in the past You have not completed the full vaccine series (you should catch up on this shot) Ask your provider if you should receive other immunizations if you have certain health problems that increase your risk for some diseases such as pneumonia. INFECTIOUS DISEASE SCREENING Women who are sexually active should be screened for chlamydia and gonorrhea up until age 25. Women 25 years and older should be screened for chlamydia and gonorrhea if at high risk. Screening for hepatitis C: All adults ages 18 to 79 should get a one-time test for hepatitis C. people should be screened at every . Screening for human immunodeficiency virus (HIV): All people ages 15 to 65 should get a one-time test for HIV. Depending on your lifestyle and medical history, you may also need to be screened for infections such as syphilis and HIV, as well as other infections. PHYSICAL EXAM All adults should visit their provider from time to time, even if they are healthy. The purpose of these visits is to: Screen for disease Assess your risk of future medical problems Encourage a healthy lifestyle Update your vaccinations and other preventive care services Maintain a relationship with a provider in case of an illness Your height, weight, and BMI should be checked at every exam. During your exam, your provider may ask you about: Depression and anxiety Diet and exercise Alcohol and tobacco use Safety issues, such as using seat belts, smoke detectors, and intimate partner violence Your medicines and risk for interactions SKIN SELF-EXAM Your provider may check your skin for signs of skin cancer, especially if you're at high risk, such as if you: Have had skin cancer before Have close relatives with skin cancer Have a weakened immune system OTHER SCREENING Talk with your provider about colon cancer screening if you have a strong family history of colon cancer or polyps, or if you have had inflammatory bowel disease or polyps yourself. Routine bone density screening of women under 40 is not recommended. Quality Reporting (2020) Adult ([facility] 138/10/30/68) Smoking risk assessment performed?: Yes Patient Tobacco Use Status: Never used Tobacco Depression screening performed: Yes Screen Results: Yes Negative screen Systolic BP not done?: No Diastolic BP not done?: No BMI screening not done: No Sexual Activity Screening ([facility] 153) Sexually active?: Yes Immunizations ([facility] 147, 117) Annual Influenza Vaccine: Yes Measles Antibody Test: No Mumps Antibody Test: No Rubella Antibody Test: No Varicella Antibody Test: No Anti Hepatitis A IgG Antigen test: No Anti Hepatitis B Virus Surface Ab test: No Fall Risk Screening ([facility] 139) Last assessed Fall Risk: 09/18/25 Fall risk assessment: No Falls in past year Dementia Assessment ([facility] 149) Cognitive assessment recorded: Yes Assessment of cognition with standardized tool: Yes Depression/Bipolar (159/160/161/177) PHQ-9: Total score: 0 Ophthalmol:Cataracts Visual Acuity (133) Visual acuity exam performed: Yes (see results ) Coding Level of Care Code Medicare Subsequent (G0439) Est Pt Level 5 (90590) Diagnoses Encounter for subsequent annual wellness visit (AWV) in Medicare patient Z00.00 ACP (advance care planning) Z71.89 Immunization counseling Z71.85 Left foot pain M79.672 Menopause Z78.0 Mixed hyperlipidemia E78.2 Hyperlipidemia type: mixed hyperlipidemia Primary hypertension I10 Hypertension type: primary hypertension Basal cell carcinoma (BCC) of skin of right lower extremity including hip C44.712 Basal cell carcinoma location: lower extremity including hip Laterality: right CPT Codes Advance Care Planning - Time spent: 16-45 minutes ([id number]) Vision Screening - Vision Screenin - Vision Screening ([id number]) Additional Codes PHQ-9 - 98934 - PHQ-9 Billing: Yes ([id number]) Advance Care Planning Advance Care Planning discussion: Exists, not on file Date of discussion: 05/26/25 Who was present: self Forms completed: Health Care Proxy, MOLST and Living will Time spent: 16-45 minutes Actual minutes spent: 16
[2025-05-26 14:55] VITALS: BP 154/78; PULSE 61; RESP 13; TEMP 36.6; O2SAT 99; BMI 26.2
[2025-05-26 15:56] VITALS: BP 150/80
--- OUTSIDE RECORDS SUMMARY | 2025-05-26 16:31 | XMS_ITS | Clinical Summary ---
Author Organization [employer] [facility] ity Address [address] [place] [address] Care Team Providers Care Decal Cutter Name Role Phone Gabi Chen MD Primary Care Provider [phone] Surgical History Surgery Date Site/Laterality Comments APPENDECTOMY [...] nts (1 - 1-dose 75+ series) 03/06/2024 Depression Screening 09/08/2024 COVID-19 Vaccine ( - 2023-2 5 season) 2025 Influenza Vaccine (#1) 2025 Hypertension/CHF/CAD Annual BMP [...] complete this topic RSV Immunization Patients Un amarilys 20 months Aged Out No longer eligible b ased on patient's age to complete this topic Varicella Vaccines Aged Out No longer eligible based on patient's age to complete this topic Care Teams Decal Cutter Relationship Specialty Start Date End Date Gabi Chen MD PCP - General 10/28/23
== END 2025-05-26 16:33 | disposition home or self-care (01) ==
LOC: HO.HMCFM 14:50
PROVIDERS: PCP Nurse Practitioner Family; Visit Provider Nurse Practitioner Family
DX: Z13.9 Encounter for screening, unspecified (principal)

== ENCOUNTER → 2025-05-26 14:49 | Outpatient (BNVA) | payer MEDICARE, SELFPAY | PROVIDERS: PCP Nurse Practitioner Family; Visit Provider Nurse Practitioner Family | DX: Z00.00 Encounter for general adult medical examination without abnormal findings (principal); I10 Essential (primary) hypertension; I34.1 Nonrheumatic mitral (valve) prolapse; E78.5 Hyperlipidemia, unspecified; M79.672 Pain in left foot; E78.2 Mixed hyperlipidemia; C44.712 Basal cell carcinoma of skin of right lower limb, including hip; M79.671 Pain in right foot; M79.674 Pain in right toe(s); Z78.0 Asymptomatic menopausal state; Z71.89 Other specified counseling; Z71.85 Encounter for immunization safety counseling | CPT/HCPCS: 83036; 96127; 99212; 99497 ==

== ENCOUNTER 2025-05-31 09:03 | Outpatient (AMB) | payer MEDICARE, SELFPAY ==
[2025-05-31 09:11] VITALS: BMI 26.2
--- NOTE | 2025-05-31 09:11 | MHC.AMNUTRGE ---
VS Expanded 05/31/25 09:11 Height 5 ft 5.5 in Weight 160 lb 0.889 oz BMI 26.2 Intake Visit Reasons: Hyperlipidemia, unspecified Allergies No Known Allergies Allergy (Verified 05/26/25 14:52) Nutrition Presentation Details: Pt presents for MNT for hyperlipedemia Pt reports making own meals. doing well Pt reports following a gluten free diet food frequency fruit: 1/d dairy (yogurt/daliy , whipping cream sugar fee, blueberrie low sugar fish : not including beverages: water etoh/smoking - denies physical activity: ADL at home BS Monitoring Most Recent Diabetes Results: Microalb/Creat Ratio TNP 04/07/25 Cholesterol, (<200) 239 mg/dL H 04/07/25 HDL Cholesterol, (>40) 50 mg/dL 04/07/25 Triglycerides, (<150) 222 mg/dL H 04/07/25 Creatinine, (0.5-1.4) 1.01 mg/dL 04/07/25 BUN, (9-16) 28 mg/dL H 04/07/25 Sodium, (135-145) 140 mmol/L 04/07/25 Potassium, (3.3-5.1) 4.0 mmol/L 04/07/25 Chloride, (96-108) 108 mmol/L 04/07/25 Carbon Dioxide, (22-29) 23 mmol/L 04/07/25 Calcium, (8.4-10.2) 9.3 mg/dL 04/07/25 AST, (5-31) 32 U/L H 04/07/25 ALT, (0-31) 18 U/L 04/07/25 Total Protein, (6.5-8.0) 7.0 g/dL 04/07/25 Albumin, (3.5-5.0) 4.4 g/dL 04/07/25 DEK-Hhrfogw-Ql.Jeor Equation Height: 5 ft 5.5 in Weight: 160 lb Resting Metabolic Rate: 1229.91 Calculated Activity Level: Sedentary Calories Needed to Maintain Weight: 1475.89 Diagnosis Nutrition problem #1: altered nutrition labs As related to (etiology) #1: diagnosis As evidenced by (sign/symptom) #1: abnormal lab values (elevated chol, tg) [facility] Medical History (Updated 05/27/25 @ 07:57 by Elba Gresham, [facility]) Stillborn, normal No pertinent family history Shingles Skin cancer Cervical spondylosis Palpitations HTN (hypertension) Surgical History (Updated 04/07/25 @ 13:41 by Piero Echols MA) [place] teeth extracted History of appendectomy Social History (Updated 04/07/25 @ 13:42 by Piero Echols MA) Household Members: Spouse and Children Both parents involved: No Caregiver staying overnight: No Housing: House Are you a primary rn care transition to a significant other at home: Yes Do you presently have visiting nurse or other home services: No 75 years or older and lives alone: No Alcohol intake: never Patient Tobacco Use Status: Never used Tobacco e-Cigarette/Vaping Use: Never Used Second Hand Smoke Exposure: No service: No Current occupational status: retired Cognitive needs: Yes Hearing needs: Yes Vision needs: Yes (wear glasses) Assessment & Plan Assessment & Plan (1) HLD (hyperlipidemia): Code(s): E78.5 - Hyperlipidemia, unspecified Category: Medical Qualifiers: Hyperlipidemia type: mixed hyperlipidemia Qualified Code(s): E78.2 - Mixed hyperlipidemia Plan: current wt: 73 kg ( 06/02 ) est kcal needs as per MSJ: 1500 est protein needs as per 1 g/kg BW: 70 est fluid needs as per 30 ml/kg BW: 2200 Recommended fiber > 12 g /day and gradually increase up to 25-28 g /day or as tolerated Nutrition topics discussed : Reviewed (R), Pt verbalized understanding (V) , not applicable (N/A) R, : Healthy Plate Method Concept: R, : Carbohydrates: food sources of carbohydrates, relationship of carbohydrates to blood glucose, fatty liver GI health. Recommended total amount of carbohydrates per meals and snack. Differences between simple carbohydrates and complex carbohydrates R, : Lean protein foods including vegan , vegetarian sources of protein. Benefits of protein (including but not limited to healing, nutritional value , benefits in weight loss, glucose control R, : Fats : Source of fats, benefits of fats. Difference between saturated and unsaturated fats. Saturated fats and its contribution to inflammation R, : Fiber: food sources and role of fiber in the diet (including but not limited to its role as a prebiotic, benefits in constipation, role in IBS , role in glucose control and cholesterol level) R, : Hydration: role of hydration and prevention of dehydration or over hydration. Foods and water content. R, V, N/A: Vitamins and Minerals in foods and supplements R, V, N/A: Interpreting food labels, including serving size, macronutrients, vitamins, minerals, allergens, ingredient list , % daily value Patient Instructions: Replace saturated fats with unsaturated fats , ex have apple wth peanut butter as snack Have tuna sand on whole wheat bread twice a week Coding Level of Care Code Nutr Indiv Intake (86543) Diagnoses Mixed hyperlipidemia E78.2 Hyperlipidemia type: mixed hyperlipidemia Time Spent (min) 30
--- OUTSIDE RECORDS SUMMARY | 2025-05-31 10:27 | XMS_ITS | Clinical Summary ---
Author Organization [employer] [facility] ity Address [address] [place] [address] Care Team Providers Care Electron Beam Welding Machine Operator Name Role Phone Gabi Chen MD Primary Care Provider [phone] Surgical History Surgery Date Site/Laterality Comments APPENDECTOMY [...] age to complete this topic Care Teams Electron Beam Welding Machine Operator Relationship Specialty Start Date End Date Gabi Chen MD PCP - General 10/28/23
[2025-06-02 13:22] VITALS: BMI 26.2
== END 2025-05-31 09:40 | disposition home or self-care (01) ==
LOC: HO.ENCR 09:04
PROVIDERS: PCP Nurse Practitioner Family; Visit Provider Dietitian, Registered
DX: E78.2 Mixed hyperlipidemia (principal)

== ENCOUNTER → 2025-05-31 09:03 | Outpatient (BNVA) | payer MEDICARE, SELFPAY | PROVIDERS: PCP Nurse Practitioner Family; Visit Provider Dietitian, Registered | DX: E78.2 Mixed hyperlipidemia (principal) | CPT/HCPCS: 97802 ==

== ENCOUNTER 2025-06-09 11:29 | Outpatient (AMB) | payer MEDICARE, SELFPAY ==
--- NOTE | 2025-06-09 11:32 | A.OFFPC_ITS ---
Vital Signs 06/09/25 11:37 Height 5 ft 5.5 in Weight 163 lb 6 oz BMI 26.8 BP 138/76 Blood Pressure Location Lt brachial Position Sitting Respiration 12 Pulse 73 Pulse Source Pulse Oximeter Temp 97.2 F Temp Source Oral Pulse Oximetry (%) 98 Oxygen Delivery Method Room Air Intake Visit Reasons: 2 weeks 30 min bp recheck Intake Note: 2 Weeks follow up on htn. Mold Filling Operator Required: No Allergies No Known Allergies Allergy (Verified 06/09/25 11:40) Medication List - Last Reconciled 06/09/25 by Elba Gresham, [facility]- metoprolol succinate ER 25 mg PO BID Tobacco use date assessed: 06/09/25 Fall risk assessment: No Falls in past year Last assessed Fall Risk: 06/09/25 Dental Screening Dental Screen Date: 06/09/25 Did you have a dental visit in the last 12 months?: Yes Did you have a dental problem in the last 6 months where you did not have access to dental care?: No Was dental information given to patient?: Patient has dentist HPI HPI Comments History of Present Illness Details 76 y/o F with Mitral valve prolapse, PV C, HTN, Vertigo, hx of sulema vaginitis, pes planus bilat, onychomycosis, cervical spondylosis, sciatica, hiatal hernia, basal cell ca of the skin, hx of stillborn (1st child), hx of MDD MVP & PVC - managed by Cards, Dr Duenas; takes BB. BP > goal, not taking BB BID as it causes fatigue, Here today for BP fu Did not start taking Metoprolol twice per day as directed Instead self monitored Home log reviewed Some SBP in the 140's Feels these are r/t chiropractic adjustments All other SBP < 140. She denies any sx. Was referred to [facility] for bilat foot, toe and arch pain. She prefers to stay in [place] as she doesnt drive. Exam: Awake alert NAD Scleras nonicteric bilat TM intact and clear Cerumen bilat, cleared w/ lavage, TM intact and clear RRR, 2/6 murmur LS CTAB, mild cough, no distress Plan: Take 2nd dose of Metoprolol day after chiropractor adjustment goal is to maintain SBP < 140 Monitor BP when taking 2nd dose and as needed, keep a log. New referral placed to [facility] podiatry for convenience RTO 6 mo for routine fu, repeat labs, sooner as needed. Total time spent caring for the patient today was 30 minutes. This includes time spent before the visit reviewing the chart, time spent during the visit, and time spent after the visit on documentation, reviewing laboratory results, diagnostic imaging, medications, performing a medically necessary evaluation, counseling on diagnoses, care coordination, ordering appropriate tests, ordering appropriate medications, review of tests performed by other providers, reporting test results with the patient, communication with other healthcare providers. [facility] Medical History (Updated 06/09/25 @ 11:53 by Elba Gresham, [facility]) Cervical spondylosis HTN (hypertension) No pertinent family history Palpitations Shingles Skin cancer Stillborn, normal Surgical History (Updated 04/07/25 @ 13:41 by Piero Echols MA) History of appendectomy [place] teeth extracted Social History (Updated 04/07/25 @ 13:42 by Piero Echols MA) Household Members: Spouse and Children Both parents involved: No Caregiver staying overnight: No Housing: House Are you a primary customer care voice consultant to a significant other at home: Yes Do you presently have visiting nurse or other home services: No 75 years or older and lives alone: No Alcohol intake: never Patient Tobacco Use Status: Never used Tobacco e-Cigarette/Vaping Use: Never Used Second Hand Smoke Exposure: No service: No Current occupational status: retired Cognitive needs: Yes Hearing needs: Yes Vision needs: Yes (wear glasses) Questionnaire PHQ-9 Over the last 2 weeks, how often have you been bothered by any of the following problems? 1. Little interest or pleasure in doing things: not at all 2. Feeling down, depressed, or hopeless: not at all 3. Trouble falling or staying asleep, or sleeping too much: not at all 4. Feeling tired or having little energy: not at all 5. Poor appetite or overeating: not at all 6. Feeling bad about yourself - or that you are a failure or have let yourself or your family down: not at all 7. Trouble concentrating on things, such as reading the newspaper or watching television: not at all 8. Moving or speaking so slowly that other people could have noticed. Or the opposite - being so fidgety or restless that you have been moving around a lot more than usual: not at all 9. Thoughts that you would be better off or of hurting yourself in some way: not at all Total score: 0 Depression Screening Interpretation: Negative Depression Screening Done: Yes 95121 - PHQ-9 Billing: Yes Source: Developed by Drs. Suman Guerrero, Catina Cisneros, Loki Mar and colleagues, with an educational lanre from [employer]. Thrive Questionnaire Date Thrive assessed: 06/09/25 I am a: Patient What is your living situation today?: I have a steady place to live Within the past 12 months, did the food you bought not last and you didn't have the money to get more?: Never true Within the past 12 months, did you worry whether your food would run out before you got money to buy more?: Never true Do you have trouble paying for medicines?: No Do you have trouble getting transportation to medical appointments?: No Do you have trouble paying your heating and electricity bill?: No Do you have trouble taking care of your child, family member or friend?: No Do you have trouble with day-to-day activities such as bathing, preparing meals, shopping, managing finances, etc.?: No Are you currently unemployed and looking for a job?: No Are you interested in more education?: No Please select the resources that you would like help with: Care for elder or disabled Currently or been in a relationship where the following occur: I choose not to answer THRIVE Score: 0 CECIL-7 AMB Questionnaire CECIL-7 Date CECIL - 7 assessed: 06/09/25 Feeling nervous, anxious, or on edge: 0 = Not at all Not being able to stop or control worryin = Not at all Worrying too much about different things: 0 = Not at all Trouble relaxin = Not at all Being so restless that it is hard to sit still: 0 = Not at all Becoming easily annoyed or irritable: 0 = Not at all Feeling afraid as if something awful might happen: 0 = Not at all Total CECIL-7 score (0-4 normal; 5-9 mild; 10-14 moderate; 15-21 severe): 0 Source: Developed by Catina Pratt.W. Blayne, Loki Mar and colleagues, with an educational lanre from [employer]. CECIL-7 Assessment Billing CECIL-7 Assessment Tool: CECIL-7 Assessment 82702 Physical exam (Primary Care) Vital Signs: Last Vital Signs Temp 97.2 F 06/09/25 11:37 Pulse 73 06/09/25 11:37 Resp 12 06/09/25 11:37 BP 138/76 06/09/25 11:37 Pulse Ox 98 06/09/25 11:37 Oxygen Delivery Method Room Air 06/09/25 11:37 BMI result Body Mass Index 26.8 Tobacco/Smoking Status: Tobacco use Status Tobacco use date assessed 06/09/25 06/09/25 11:36 Patient Tobacco Use Status Never used Tobacco 06/09/25 11:36 e-Cigarette/Vaping Use Never Used 06/09/25 11:36 PHQ-9: PHQ-9 Score PHQ-9: Total score 0 06/09/25 11:44 Depression Screening Interpretation: Negative Thrive Assessment: Date of Thrive Assessment Date Thrive assessed 06/09/25 06/09/25 11:36 Currently or been in a relationship where the following occur: I choose not to answer Coding Level of Care Code Est Pt Level 4 (23470) Complex EM visit Add On G2211 Diagnoses Primary hypertension I10 Hypertension type: primary hypertension Left foot pain M79.672 Right foot pain M79.671 Mixed hyperlipidemia E78.2 Hyperlipidemia type: mixed hyperlipidemia Additional Codes CECIL-7 Assessment Billing - CECIL-7 Assessment Tool: CECIL-7 Assessment 58753 ([id number]) PHQ-9 - 02428 - PHQ-9 Billing: Yes ([id number]) Assessment & Plan Assessment & Plan (1) HTN (hypertension): Code(s): I10 - Essential (primary) hypertension Category: Medical Qualifiers: Hypertension type: primary hypertension Qualified Code(s): I10 - Essential (primary) hypertension (2) Left foot pain: Code(s): M79.672 - Pain in left foot Category: Medical (3) Right foot pain: Code(s): M79.671 - Pain in right foot Category: Medical (4) HLD (hyperlipidemia): Code(s): E78.5 - Hyperlipidemia, unspecified Category: Medical Qualifiers: Hyperlipidemia type: mixed hyperlipidemia Qualified Code(s): E78.2 - Mixed hyperlipidemia Plan . Orders: Orders Lipid Panel 6 Months E78.2 - Mixed hyperlipidemia, I10 - Essential (primary) hypertension Comprehensive Met. Panel 6 Months E78.2 - Mixed hyperlipidemia, I10 - Essential (primary) hypertension Referrals Podiatry Referral M79.671 - Pain in right foot, M79.672 - Pain in left foot
[2025-06-09 11:37] VITALS: BP 138/76; PULSE 73; RESP 12; TEMP 36.2; O2SAT 98; BMI 26.8
--- OUTSIDE RECORDS SUMMARY | 2025-06-09 13:22 | XMS_ITS | Clinical Summary ---
Author Organization [employer] [facility] it Address [address] [place] [address] Care Team Providers Care Molecular Modeler Name Role Phone Gabi Chen MD Primary Care Provider [phone] Surgical History Surgery Date Site/Laterality Comments APPENDECTOMY [...] age to complete this topic Care Teams Molecular Modeler Relationship Specialty Start Date End Date Gabi Chen MD PCP - General 10/28/23
== END 2025-06-09 11:55 | disposition home or self-care (01) ==
LOC: HO.HMCFM 11:30
PROVIDERS: PCP Nurse Practitioner Family; Visit Provider Nurse Practitioner Family
DX: I10 Essential (primary) hypertension (principal); M79.672 Pain in left foot; M79.671 Pain in right foot; E78.2 Mixed hyperlipidemia

== ENCOUNTER → 2025-06-09 11:29 | Outpatient (BNVA) | payer MEDICARE, SELFPAY | PROVIDERS: PCP Nurse Practitioner Family; Visit Provider Nurse Practitioner Family | DX: I10 Essential (primary) hypertension (principal); M79.672 Pain in left foot; M79.671 Pain in right foot; E78.2 Mixed hyperlipidemia | CPT/HCPCS: 96127; 99212 ==